=== PATIENT | female | born 1990 | race Caucasian/White ===

== ENCOUNTER 2022-03-06 07:49 | Emergency (ER) | payer MEDICAID, OTHER ==
[~2022-03-06] VITALS: Ht 170.2 cm; Wt 84.5 kg
[2022-03-06] MEDS ORDERED: BENZ20SO3 MT ×2 (08:29→08:31)
[2022-03-06] MEDS ORDERED: CLIN300C8 PO (08:29)
[2022-03-06] MEDS ORDERED: cefTRIAXone SOD 1,000 MG VL IM ONE (08:30)
[2022-03-06] MEDS ORDERED: HYDROcodone-ACET 5/325MG TAB PO ONE (08:30)
[2022-03-06 08:39] VITALS: BP 146/100
== END 2022-03-06 08:55 | disposition home or self-care (01) ==
LOC: ER 07:49
DX: K04.7 Periapical abscess without sinus (principal); F17.210 Nicotine dependence, cigarettes, uncomplicated; F12.10 Cannabis abuse, uncomplicated; E11.9 Type 2 diabetes mellitus without complications; I50.9 Heart failure, unspecified
CPT/HCPCS: 96372; 99283; J0696

== ENCOUNTER 2022-05-30 16:04 | Emergency (ER) | payer MEDICAID ==
[~2022-05-30] VITALS: Ht 167.6 cm; Wt 84.1 kg
[~2022-05-30 16:04] MED LIST: BENZ20SO3 MT; CLIN300C8 PO
[2022-05-30 16:37] VITALS: BP 128/92
[2022-05-30] MEDS ORDERED: KETOROLAC TROMETH 60MG/2ML VIAL IM ONE (17:00)
[2022-05-30] MEDS ORDERED: cefTRIAXone SOD 1,000 MG VL IM ONE (17:00)
[2022-05-30] MEDS ORDERED: IBUP800T27 PO (17:25)
[2022-05-30] MEDS ORDERED: CLIN300C8 PO (17:25)
== END 2022-05-30 17:28 | disposition home or self-care (01) ==
LOC: ER 16:04
DX: K04.7 Periapical abscess without sinus (principal); E11.9 Type 2 diabetes mellitus without complications; I50.9 Heart failure, unspecified; F17.210 Nicotine dependence, cigarettes, uncomplicated; Z79.2 Long term (current) use of antibiotics; Z79.899 Other long term (current) drug therapy
CPT/HCPCS: 41800; 96372; 99284; J0696; J1885